=== PATIENT | male | born 1970 | race Caucasian/White ===

== ENCOUNTER 2021-09-25 10:17 | Inpatient (IN) | payer OTHER ==
[2021-09-25] MEDS ORDERED: NICOTINE 10 MG CARTRIDGE (INHALER) IH PRN (10:44)
[2021-09-25] MEDS ORDERED: DICYCLOMINE HCL 10 MG CAPSULE PO PRN (10:44)
[2021-09-25] MEDS ORDERED: MAGNESIUM CITRATE 300 ML BOTTLE PO PRN (10:44)
[2021-09-25] MEDS ORDERED: BENZOCAINE/MENTHOL (CHLORASEPTIC ) LOZENGE MM PRN (10:44)
[2021-09-25] MEDS ORDERED: methaDONE HCL 10 MG TABLET (FOR DETOX USE ONLY) PO ONE ×2 (10:44→17:42)
[2021-09-25] MEDS ORDERED: ACETAMINOPHEN 325 MG TABLET (FP) PO PRN ×2 (10:44)
[2021-09-25] MEDS ORDERED: METHOCARBAMOL 500 MG TABLET PO PRN (10:44)
[2021-09-25] MEDS ORDERED: cloNIDine HCL 0.1 MG TABLET PO PRN (10:44)
[2021-09-25] MEDS ORDERED: MAGNESIUM HYDROX 2400MG/30ML ORAL SUSPENSION 30 ML CUP PO PRN (10:44)
[2021-09-25] MEDS ORDERED: LOPERAMIDE HCL 2 MG CAPSULE PO PRN (10:44)
[2021-09-25] MEDS ORDERED: MAG HYDROX/AL HYDROX/SIMETH 30 ML UNIT-DOSE CUP PO PRN (10:44)
[2021-09-25] MEDS ORDERED: IBUPROFEN 400 MG TABLET (FP) PO PRN (10:44)
[2021-09-25] MEDS ORDERED: BISMUTH SUBSALICYLATE 262 MG/15 ML BTL PO PRN (10:44)
[2021-09-25] MEDS ORDERED: PRENATAL VITAMINS W/ FOLIC ACID TABLET (FP) PO SCH (10:45)
[2021-09-25 14:50] LABS: HEMATOCRIT 40.1 % (35.4-49); HEMOGLOBIN 13.2 GM/dL (11.7-16.9); MCH 27.6 pg (25.7-33.7); MCHC 32.8 g/dl (32.0-35.9); MEAN CELL VOLUME 84.4 fl (80-96); MEAN PLT VOLUME 8.7 fl (7.5-11.1); PLATELET COUNT 270 10^3/uL (134-434); RBC 4.76 M/mm3 (4.00-5.60); RDW 14.2 % (11.9-15.9); WHITE BLOOD COUNT 11.2 K/mm3 (4.0-10.0)
[2021-09-25 15:05] LABS: ALBUMIN 3.7 g/dl (3.4-5.0); CALCIUM 9.3 mg/dL (8.5-10.1)
[2021-09-25 15:06] LABS: BLOOD UREA NITROGEN 19.9 mg/dL (7-18)
[2021-09-25] MEDS: hydrOXYzine PAMOATE 25 MG CAPSULE (FP) PO SCH ×3 (15:07→23:30)
[2021-09-25 15:10] LABS: BILIRUBIN,TOTAL 0.3 mg/dL (0.2-1); TOT PROT 7.8 g/dl (6.4-8.2)
[2021-09-25 15:56] VITALS: BMI 25.0
[2021-09-25] MEDS ORDERED: ALBUTEROL SO4 HFA INHALER IH PRN (15:57)
[2021-09-25] MEDS: ONDANSETRON *ODT* 4 MG TABLET SL PRN (17:20)
[2021-09-25] MEDS ORDERED: THIAMINE HCL 100 MG TABLET (FP) PO SCH (22:00)
[2021-09-25] MEDS ORDERED: MELATONIN 5 MG TABLETS PO SCH (22:00)
[2021-09-25] MEDS ORDERED: TRIMETHOBENZAMIDE HCL 200MG/2ML INJ IM ONE (22:26)
[2021-09-26] MEDS: ONDANSETRON *ODT* 4 MG TABLET SL PRN (03:23)
[2021-09-26] MEDS: hydrOXYzine PAMOATE 25 MG CAPSULE (FP) PO SCH (05:26)
[2021-09-26] MEDS ORDERED: TRIMETHOBENZAMIDE HCL 200MG/2ML INJ IM PRN (05:30)
[2021-09-26 06:34] VITALS: BP 126/86; PULSE 63; TEMP 97.1
[2021-09-26] MEDS ORDERED: methaDONE HCL 10 MG TABLET (FOR DETOX USE ONLY) ONE (08:49)
[2021-09-26] MEDS ORDERED: diazePAM 5 MG TABLET PO PRN (09:09)
[2021-09-27] MEDS ORDERED: methaDONE HCL 10 MG TABLET (FOR DETOX USE ONLY) PO ONE (10:00)
[2021-09-29] MEDS ORDERED: methaDONE HCL 10 MG TABLET (FOR DETOX USE ONLY) PO ONE (10:00)
== END 2021-09-26 09:33 | disposition left against medical advice (07) | DRG 770 ==
LOC: YASAS 10:17 → Y6N 11:39
PROVIDERS: ADMIT Allergy & Immunology; ATTEND Allergy & Immunology
PROC: HZ2ZZZZ Detoxification Services for Substance Abuse Treatment (ICD-10-PCS; principal; 2021-09-25)
DX: F11.23 Opioid dependence with withdrawal (principal); F12.10 Cannabis abuse, uncomplicated; F17.210 Nicotine dependence, cigarettes, uncomplicated; J44.9 Chronic obstructive pulmonary disease, unspecified; R11.2 Nausea with vomiting, unspecified
CPT/HCPCS: 36415; 80053; 85027; 86780; 87811; 93005; 93010; C9803-CS; Q0162; U0003; U0005

== ENCOUNTER 2022-02-21 11:35 | Inpatient (IN) | payer OTHER ==
[2022-02-21 13:23] VITALS: BMI 20.7
[2022-02-21] MEDS ORDERED: ONDANSETRON *ODT* 4 MG TABLET SL PRN (18:31)
[2022-02-21] MEDS ORDERED: ACETAMINOPHEN 325 MG TABLET (FP) PO PRN ×2 (18:31)
[2022-02-21] MEDS ORDERED: IBUPROFEN 400 MG TABLET (FP) PO PRN (18:31)
[2022-02-21] MEDS ORDERED: LOPERAMIDE HCL 2 MG CAPSULE PO PRN (18:31)
[2022-02-21] MEDS ORDERED: MAG HYDROX/AL HYDROX/SIMETH 30 ML UNIT-DOSE CUP PO PRN (18:31)
[2022-02-21] MEDS ORDERED: NICOTINE 10 MG CARTRIDGE (INHALER) IH PRN (18:31)
[2022-02-21] MEDS ORDERED: MAGNESIUM HYDROX 2400MG/30ML ORAL SUSPENSION 30 ML CUP PO PRN (18:31)
[2022-02-21] MEDS ORDERED: MAGNESIUM CITRATE 300 ML BOTTLE PO PRN (18:31)
[2022-02-21] MEDS ORDERED: NICOTINE POLACRILEX 2 MG GUM BUC PRN (18:31)
[2022-02-21] MEDS ORDERED: BISMUTH SUBSALICYLATE 524 MG/30 ML PO PRN (18:31)
[2022-02-21] MEDS ORDERED: BENZOCAINE/MENTHOL (CHLORASEPTIC ) LOZENGE MM PRN (18:31)
[2022-02-21] MEDS ORDERED: NALOXONE HCL (KLOXXADO) 8 MG SPRAY NS PRN (18:31)
[2022-02-21] MEDS: METHOCARBAMOL 500 MG TABLET PO PRN (19:23)
[2022-02-21] MEDS: IBUPROFEN 600 MG TABLET (FP) PO PRN (19:23)
[2022-02-21] MEDS: NICOTINE 7 MG/24 HOURS TOPICAL PATCH TD SCH (19:27)
[2022-02-21] MEDS: THIAMINE HCL 100 MG TABLET (FP) PO SCH (22:41)
[2022-02-21] MEDS: AMOXICILLIN 500 MG CAPSULE (FP) PO SCH (22:41)
[2022-02-21] MEDS: MELATONIN 5 MG TABLETS PO SCH (22:41)
[2022-02-21] MEDS: hydrOXYzine PAMOATE 25 MG CAPSULE (FP) PO SCH (22:41)
[2022-02-22] MEDS: hydrOXYzine PAMOATE 25 MG CAPSULE (FP) PO SCH ×5 (06:19→22:04)
[2022-02-22] MEDS: ALBUTEROL SO4 HFA INHALER IH PRN (06:33)
[2022-02-22] MEDS: METHOCARBAMOL 500 MG TABLET PO PRN (11:02)
[2022-02-22] MEDS: PRENATAL VITAMINS W/ FOLIC ACID TABLET (FP) PO SCH (11:02)
[2022-02-22] MEDS: AMOXICILLIN 500 MG CAPSULE (FP) PO SCH ×2 (11:03→22:04)
[2022-02-22] MEDS: methaDONE HCL 10 MG TABLET PO SCH (11:10)
[2022-02-22] MEDS: DICYCLOMINE HCL 10 MG CAPSULE PO PRN (11:11)
[2022-02-22] MEDS: NICOTINE 7 MG/24 HOURS TOPICAL PATCH TD SCH (11:15)
[2022-02-22] MEDS ORDERED: PNEUMOC 20-VAL CONJ-DIP CRM/PF 0.5 ML SYRINGE IM ONE (12:00)
[2022-02-22] MEDS: IBUPROFEN 600 MG TABLET (FP) PO PRN (20:59)
[2022-02-22] MEDS: THIAMINE HCL 100 MG TABLET (FP) PO SCH (21:00)
[2022-02-22] MEDS: MELATONIN 5 MG TABLETS PO SCH (22:04)
[2022-02-23] MEDS: hydrOXYzine PAMOATE 25 MG CAPSULE (FP) PO SCH ×5 (06:04→22:13)
[2022-02-23] MEDS: methaDONE HCL 10 MG TABLET PO SCH (06:06)
[2022-02-23 11:00] LABS: HEMATOCRIT 32.7 % (35.4-49); HEMOGLOBIN 10.7 GM/dL (11.7-16.9); MCH 27.1 pg (25.7-33.7); MCHC 32.7 g/dl (32.0-35.9); MEAN CELL VOLUME 82.8 fl (80-96); PLATELET COUNT 432 10^3/uL (134-434); RBC 3.95 M/mm3 (4.00-5.60); RDW 15.3 % (11.9-15.9); WHITE BLOOD COUNT 8.4 K/mm3 (4.0-10.0)
[2022-02-23] MEDS: AMOXICILLIN 500 MG CAPSULE (FP) PO SCH ×2 (11:06→22:13)
[2022-02-23] MEDS: NICOTINE 7 MG/24 HOURS TOPICAL PATCH TD SCH (11:06)
[2022-02-23] MEDS: PRENATAL VITAMINS W/ FOLIC ACID TABLET (FP) PO SCH (11:06)
[2022-02-23 11:09] LABS: CALCIUM 8.8 mg/dL (8.5-10.1)
[2022-02-23 11:11] LABS: ALBUMIN 2.7 g/dl (3.4-5.0)
[2022-02-23 11:14] LABS: BILIRUBIN,TOTAL 0.4 mg/dL (0.2-1); CREATININE 0.7 mg/dL (0.55-1.3); TOT PROT 6.9 g/dl (6.4-8.2)
[2022-02-23 13:35] VITALS: TEMP 97.3
[2022-02-23 16:56] VITALS: RESP 17
[2022-02-23 21:07] VITALS: BP 144/81; PULSE 79
[2022-02-23] MEDS: ALBUTEROL SO4 HFA INHALER IH PRN (22:13)
[2022-02-23] MEDS: THIAMINE HCL 100 MG TABLET (FP) PO SCH (22:13)
[2022-02-23] MEDS: MELATONIN 5 MG TABLETS PO SCH (22:13)
[2022-02-23] MEDS: DICYCLOMINE HCL 10 MG CAPSULE PO PRN (22:14)
[2022-02-24] MEDS: METHOCARBAMOL 500 MG TABLET PO PRN (05:03)
[2022-02-24] MEDS: hydrOXYzine PAMOATE 25 MG CAPSULE (FP) PO SCH (05:03)
[2022-02-24] MEDS: methaDONE HCL 10 MG TABLET PO SCH (05:07)
== END 2022-02-24 07:12 | disposition home or self-care (01) | DRG 773 ==
LOC: YASAS 11:35 → Y6N 16:42
PROVIDERS: ADMIT Allergy & Immunology; ATTEND Surgery
PROC: HZ2ZZZZ Detoxification Services for Substance Abuse Treatment (ICD-10-PCS; principal; 2022-02-21)
DX: F11.23 Opioid dependence with withdrawal (principal); F14.20 Cocaine dependence, uncomplicated; F17.220 Nicotine dependence, chewing tobacco, uncomplicated; J45.20 Mild intermittent asthma, uncomplicated; L02.413 Cutaneous abscess of right upper limb
CPT/HCPCS: 36415; 80053; 85027; 86780; C9803-CS; U0003; U0005

== ENCOUNTER 2023-08-11 17:16 | Inpatient (IN) | payer OTHER ==
[2023-08-11 19:28] VITALS: BMI 18.2
[2023-08-11] MEDS ORDERED: BENZOCAINE 20 % GEL TUBE MM PRN (22:05)
[2023-08-11] MEDS ORDERED: MAGNESIUM HYDROX 2400MG/30ML ORAL SUSPENSION 30 ML CUP PO PRN (22:10)
[2023-08-11] MEDS ORDERED: BENZONATATE 200 MG CAPSULE PO PRN (22:10)
[2023-08-11] MEDS ORDERED: IBUPROFEN 400 MG TABLET (FP) PO PRN (22:10)
[2023-08-11] MEDS ORDERED: BISMUTH SUBSALICYLATE 524 MG/30 ML PO PRN (22:10)
[2023-08-11] MEDS ORDERED: DICYCLOMINE HCL 10 MG CAPSULE PO PRN (22:10)
[2023-08-11] MEDS ORDERED: BENZOCAINE/MENTHOL (CHLORASEPTIC ) LOZENGE MM PRN (22:10)
[2023-08-11] MEDS ORDERED: NICOTINE POLACRILEX 2 MG LOZENGE BC PRN (22:10)
[2023-08-11] MEDS ORDERED: NALOXONE HCL (KLOXXADO) 8 MG SPRAY NS PRN (22:10)
[2023-08-11] MEDS ORDERED: POLYETHYLENE GLYCOL (HEALTHYLAX) 3350 17 GM PACKET PO PRN (22:10)
[2023-08-11] MEDS ORDERED: IBUPROFEN 600 MG TABLET (FP) PO PRN (22:10)
[2023-08-11] MEDS ORDERED: P-EPHED 60MG/TRIPROLIDI 2.5MG TABLET PO PRN (22:10)
[2023-08-11] MEDS ORDERED: ACETAMINOPHEN 325 MG TABLET (FP) PO PRN (22:10)
[2023-08-11] MEDS ORDERED: NALOXONE HCL 0.4 MG/ML VIAL IM PRN (22:10)
[2023-08-11] MEDS ORDERED: guaiFENesin 600 MG TABLET.ER (FP) PO PRN (22:10)
[2023-08-11] MEDS ORDERED: NICOTINE POLACRILEX 2 MG GUM BUC PRN (22:10)
[2023-08-12] MEDS: TRIMETHOBENZAMIDE HCL 200MG/2ML INJ IM PRN (10:24)
[2023-08-12] MEDS: methaDONE HCL 10 MG TABLET (FOR DETOX USE ONLY) PO ONE (10:26)
[2023-08-12] MEDS: PRENATAL VITAMINS W/ FOLIC ACID TABLET (FP) PO SCH (10:27)
[2023-08-12] MEDS: cloNIDine HCL 0.1 MG TABLET PO PRN (10:28)
[2023-08-12] MEDS ORDERED: ALBUTEROL SO4 HFA INHALER IH PRN (11:06)
[2023-08-12] MEDS: THIAMINE HCL 100 MG TABLET (FP) PO SCH (22:54)
[2023-08-12] MEDS: hydrOXYzine PAMOATE 25 MG CAPSULE (FP) PO PRN (22:54)
[2023-08-12] MEDS: MELATONIN 5 MG TABLETS PO SCH (22:55)
[2023-08-12] MEDS: MAG HYDROX/AL HYDROX/SIMETH 30 ML UNIT-DOSE CUP PO PRN (23:00)
[2023-08-13] MEDS: ONDANSETRON *ODT* 4 MG TABLET SL PRN (02:01)
[2023-08-13] MEDS: amLODIPine BESYLATE 5 MG TABLET (FP) PO SCH (11:38)
[2023-08-13] MEDS ORDERED: PANTOPRAZOLE 40 MG TABLET PO SCH (16:00)
[2023-08-13] MEDS: PANTOPRAZOLE 20 MG TABLET PO SCH (17:36)
[2023-08-13] MEDS: METHOCARBAMOL 500 MG TABLET PO PRN (21:43)
[2023-08-14] MEDS: methaDONE HCL 10 MG TABLET (FOR DETOX USE ONLY) PO ONE (10:52)
[2023-08-14 14:42] LABS: CALCIUM 9.2 mg/dL (8.5-10.1)
[2023-08-14 14:43] LABS: ALBUMIN 3.3 g/dl (3.4-5.0); BLOOD UREA NITROGEN 22.6 mg/dL (7-18)
[2023-08-14 14:47] LABS: CREATININE 0.8 mg/dL (0.55-1.3)
[2023-08-14 14:48] LABS: TOT PROT 7.2 g/dl (6.4-8.2)
[2023-08-14 14:53] LABS: BILIRUBIN,TOTAL 0.7 mg/dL (0.2-1)
[2023-08-14] MEDS: LOPERAMIDE HCL 2 MG CAPSULE PO PRN (17:02)
[2023-08-14] MEDS: diazePAM 5 MG TABLET PO PRN (17:02)
[2023-08-15 13:14] LABS: HEMATOCRIT 44.5 % (35.4-49); HEMOGLOBIN 14.8 GM/dL (11.7-16.9); MCH 28.2 pg (25.7-33.7); MCHC 33.2 g/dl (32.0-35.9); MEAN CELL VOLUME 84.9 fl (80-96); MEAN PLT VOLUME 8.6 fl (7.5-11.1); PLATELET COUNT 304 10^3/uL (134-434); RBC 5.24 M/mm3 (4.00-5.60); RDW 14.4 % (11.9-15.9); WHITE BLOOD COUNT 13.2 K/mm3 (4.0-10.0)
[2023-08-15 13:47] LABS: POTASSIUM 4.3 mmol/L (3.5-5.1)
[2023-08-15 13:49] LABS: CALCIUM 9.2 mg/dL (8.5-10.1)
[2023-08-15 13:57] LABS: BLOOD UREA NITROGEN 22.8 mg/dL (7-18); CREATININE 0.7 mg/dL (0.55-1.3)
[2023-08-16 09:29] VITALS: BP 128/84; PULSE 109; RESP 16; TEMP 97.7
[2023-08-16] MEDS: methaDONE HCL 10 MG TABLET (FOR DETOX USE ONLY) PO ONE (09:38)
== END 2023-08-16 10:08 | disposition home or self-care (01) | DRG 773 ==
LOC: YASAS 17:16 → Y6N 22:32
PROVIDERS: ADMIT Allergy & Immunology; ATTEND Surgery
PROC: HZ2ZZZZ Detoxification Services for Substance Abuse Treatment (ICD-10-PCS; principal; 2023-08-11)
DX: F11.23 Opioid dependence with withdrawal (principal); F14.10 Cocaine abuse, uncomplicated; F17.210 Nicotine dependence, cigarettes, uncomplicated; I10 Essential (primary) hypertension; J45.20 Mild intermittent asthma, uncomplicated; K21.9 Gastro-esophageal reflux disease without esophagitis
CPT/HCPCS: 36415; 80048; 80053; 80305; 82947; 83036; 85027; 86780; 87635; 93005; 93010; Q0162

== ENCOUNTER 2024-06-23 13:15 | Inpatient (IN) | payer OTHER ==
[2024-06-23] MEDS ORDERED: POLYETHYLENE GLYCOL (HEALTHYLAX) 3350 17 GM PACKET PO PRN ×2 (13:30→14:50)
[2024-06-23] MEDS ORDERED: IBUPROFEN 600 MG TABLET (FP) PO PRN (13:30)
[2024-06-23] MEDS ORDERED: MAGNESIUM HYDROX 2400MG/30ML ORAL SUSPENSION 30 ML CUP PO PRN ×2 (13:30→14:50)
[2024-06-23] MEDS ORDERED: MAG HYDROX/AL HYDROX/SIMETH 30 ML UNIT-DOSE CUP PO PRN ×2 (13:30→14:50)
[2024-06-23] MEDS ORDERED: guaiFENesin 600 MG TABLET.ER (FP) PO PRN ×2 (13:30→14:50)
[2024-06-23] MEDS ORDERED: ACETAMINOPHEN 325 MG TABLET (FP) PO PRN (13:30)
[2024-06-23] MEDS ORDERED: LOPERAMIDE HCL 2 MG CAPSULE PO PRN ×2 (13:30→14:50)
[2024-06-23] MEDS ORDERED: BENZONATATE 200 MG CAPSULE PO PRN ×2 (13:30→14:50)
[2024-06-23] MEDS ORDERED: IBUPROFEN 400 MG TABLET (FP) PO PRN ×2 (13:30→14:50)
[2024-06-23] MEDS ORDERED: hydrOXYzine PAMOATE 25 MG CAPSULE (FP) PO PRN (13:30)
[2024-06-23] MEDS ORDERED: NALOXONE (NARCAN) HCL 4 MG/0.1 ML SPRAY NS PRN ×2 (13:30→14:50)
[2024-06-23] MEDS ORDERED: BENZOCAINE/MENTHOL (CHLORASEPTIC ) LOZENGE MM PRN ×2 (13:30→14:50)
[2024-06-23] MEDS: PRENATAL VITAMINS W/ FOLIC ACID TABLET (FP) PO SCH ×2 (13:45→16:33)
[2024-06-23] MEDS ORDERED: NICOTINE 14 MG/24 HOURS TOPICAL PATCH TD SCH (13:45)
[2024-06-23 13:51] VITALS: BMI 19.1
[2024-06-23] MEDS ORDERED: BISMUTH SUBSALICYLATE 524 MG/30 ML PO PRN (14:50)
[2024-06-23] MEDS ORDERED: DICYCLOMINE HCL 10 MG CAPSULE PO PRN (14:50)
[2024-06-23] MEDS: NICOTINE 21 MG/24 HOURS TOPICAL PATCH TD SCH (15:55)
[2024-06-23] MEDS ORDERED: methaDONE HCL 10 MG TABLET (FOR DETOX USE ONLY) ONE (16:21)
[2024-06-23] MEDS: methaDONE HCL 10 MG TABLET PO ONE (16:33)
[2024-06-23] MEDS: cloNIDine HCL 0.1 MG TABLET PO SCH (18:43)
[2024-06-23] MEDS ORDERED: THIAMINE 100 MG TABLET PO SCH (22:00)
[2024-06-23] MEDS ORDERED: MELATONIN 5 MG TABLETS PO SCH (22:00)
[2024-06-23] MEDS: THIAMINE 100 MG TABLET PO SCH (22:41)
[2024-06-23] MEDS: MELATONIN 5 MG TABLETS PO SCH (22:41)
[2024-06-24] MEDS ORDERED: ALBUTEROL SO4 HFA INHALER IH ONE (02:41)
[2024-06-24] MEDS: ALBUTEROL SO4 HFA INHALER IH PRN (02:55)
[2024-06-24] MEDS: ONDANSETRON *ODT* 4 MG TABLET SL PRN (04:29)
[2024-06-24] MEDS ORDERED: METHADONE HCL PO SCH (09:15)
[2024-06-24] MEDS: methaDONE HCL 10 MG TABLET PO SCH (09:40)
[2024-06-24] MEDS: methaDONE HCL 10 MG TABLET PO ONE (09:40)
[2024-06-24] MEDS: IBUPROFEN 600 MG TABLET (FP) PO PRN (14:52)
[2024-06-24] MEDS: TRIMETHOBENZAMIDE HCL 200MG/2ML INJ IM PRN (14:53)
[2024-06-24] MEDS: METHOCARBAMOL 500 MG TABLET PO PRN (17:48)
[2024-06-25] MEDS ORDERED: cloNIDine HCL 0.1 MG TABLET PO PRN
[2024-06-25] MEDS: methaDONE HCL 10 MG TABLET PO SCH (06:59)
[2024-06-25] MEDS: methaDONE HCL 10 MG TABLET PO ONE (10:25)
[2024-06-25] MEDS: ACETAMINOPHEN 325 MG TABLET (FP) PO PRN (10:30)
[2024-06-26] MEDS: methaDONE HCL 40 MG DISPERSABLE TABLET PO ONE (09:32)
[2024-06-26] MEDS: hydrOXYzine PAMOATE 25 MG CAPSULE (FP) PO PRN (21:23)
[2024-06-27] MEDS ORDERED: methaDONE 40 MG, methaDONE 10 MG PO ONE (10:00)
[2024-06-27] MEDS: methaDONE HCL 40 MG DISPERSABLE TABLET PO ONE (10:39)
[2024-06-28 06:24] VITALS: RESP 16
[2024-06-28] MEDS: NALOXONE (NYS OPIOID OVERDOSE PROGRAM) 4 MG/0.1 ML SPRAY NS ONE (08:45)
[2024-06-28 08:50] VITALS: BP 104/60; PULSE 68; TEMP 98
[2024-06-28] MEDS: methaDONE HCL 40 MG DISPERSABLE TABLET PO ONE (09:58)
[2024-06-28] MEDS ORDERED: methaDONE 40 MG, methaDONE 20 MG PO ONE (10:00)
== END 2024-06-28 10:18 | disposition home or self-care (01) | DRG 773 ==
LOC: YASAS 13:15 → Y3N 16:29
PROVIDERS: ADMIT Allergy & Immunology; ATTEND Psychiatry & Neurology Pain Medicine
PROC: HZ2ZZZZ Detoxification Services for Substance Abuse Treatment (ICD-10-PCS; principal; 2024-06-23)
DX: F11.23 Opioid dependence with withdrawal (principal); F14.10 Cocaine abuse, uncomplicated; F12.10 Cannabis abuse, uncomplicated; F17.213 Nicotine dependence, cigarettes, with withdrawal; I10 Essential (primary) hypertension; J45.20 Mild intermittent asthma, uncomplicated; K21.9 Gastro-esophageal reflux disease without esophagitis; Z59.02 Unsheltered homelessness
CPT/HCPCS: 80305; 80307; 93005; 93010; Q0162